=== PATIENT | male | born 1970 | race Caucasian/White ===

== ENCOUNTER 2017-09-20 01:53 | Emergency (ER) | payer OTHER ==
[~2017-09-20] VITALS: Ht 190.5 cm; Wt 150.7 kg
[~2017-09-20 01:53] MED LIST: BACT800T5 PO; PERC5TAB12 PO; TAMS0.4C67 PO; ZOFR4TAB3 SL
[2017-09-20 01:57] VITALS: BP 144/86; PULSE 84; RESP 18; TEMP 98.1; O2SAT 96
[2017-09-20 02:11] VITALS: BP 144/86; PULSE 84; RESP 20; TEMP 98.1; O2SAT 96
--- NOTE | 2017-09-20 02:32 | PD ---
HPI Chief Complaint: Cold / Flu Symptoms Time Seen by Provider: 02:29 Travel History International Travel<30 days: No Contact w/Intl Traveler<30days: No Traveled to known affect area: No History of Present Illness HPI 47-year-old male presents to the emergency department for persistent cough 10 days after course of azithromycin and prednisone. Patient was seen at local urgent care and diagnosed with bronchitis and prescribed azithromycin and prednisone. Patient completed course of medication. Patient is used over-the- counter Flonase with some symptom relief. Patient states that onset of symptoms he was coughing up green phlegm production and now phlegm is a mild zhang color. No fever or chills. Patient denies history of diabetes or hypertension. Son with recent similar symptoms and was diagnosed with pneumonia. Patient is concerned that he may have pneumonia. PFSH Past Medical History Narrative Medical Kidney stone; no tobacco use; nursing notes reviewed Blood Disorders: No Cancer: No Cardiovascular Problems: No Chemotherapy: No Diminished Hearing: No Endocrine: No Genitourinary: No Immune Disorder: No Kidney Stones: Yes Musculoskeletal: No Neurologic: No Psychiatric: No Reproductive: No Respiratory: No Radiation Therapy: No Influenza Vaccination: No Past Surgical History Abdominal Surgery: No AICD: No Arteriovenous Shunt: No Cardiac Surgery: No Ear Surgery: No Endocrine Surgery: No Eye Surgery: No Gynecologic Surgery: No Insulin Pump: No Joint Replacement: No Oral Surgery: No Pacemaker: No Thoracic Surgery: No Other Surgery: Yes Social History Alcohol Use: No Tobacco Use: No Substance Use: No Allergies-Medications (Allergen,Severity, Reaction): Coded Allergies: No Known Allergies (Verified Adverse Reaction, Unknown, 09/20/17) Reported Meds & Prescriptions Reported Meds & Active Scripts Active Review of Systems Except as stated in HPI: all other systems reviewed are Neg General / Constitutional: No: Fever, Chills HENT: Positive: Congestion, No: Sore Throat Cardiovascular: No: Chest Pain or Discomfort Respiratory: Positive: Cough, No: Shortness of Breath, Wheezing Gastrointestinal: No: Vomiting, Abdominal Pain Genitourinary: No: Flank Pain Musculoskeletal: No: Myalgias, Arthralgias Skin: No Rash Neurologic: No: Weakness Psychiatric: No: Anxiety Hematologic/Lymphatic: No: Lymph Node Enlargement Physical Exam Narrative GENERAL: Well-developed well-nourished male no acute distress no respiratory distress; GCS 15 SKIN: Warm and dry. HEAD: Normocephalic. EYES: No scleral icterus. No injection or drainage. ENT: Mucous membranes moist airways patent tympanic membranes no redness dullness or loss of landmarks no perforation. NECK: Supple, trachea midline. No JVD or lymphadenopathy. No meningismus no nuchal rigidity. CARDIOVASCULAR: Regular rate and rhythm without murmurs, gallops, or rubs. RESPIRATORY: Breath sounds equal bilaterally. No accessory muscle use. GASTROINTESTINAL: Abdomen soft, non-tender, nondistended. MUSCULOSKELETAL: No cyanosis, or edema. BACK: Nontender without obvious deformity. No CVA tenderness. Data Data Last Documented VS Vital Signs Date Time Temp Pulse Resp B/P (MAP) Pulse Ox O2 Delivery O2 Flow Rate FiO2 09/20/17 02:16 20 96 Room Air 09/20/17 02:11 98.1 84 144/86 (105) Orders Orders Chest, Pa & Lat (09/20/17 ) [facility] Medical Decision Making Medical Screen Exam Complete: Yes Emergency Medical Condition: Yes Medical Record Reviewed: Yes Interpretation(s) CXR: FINDINGS: Mild left base atelectasis. No pleural effusion. No pneumothorax. Heart size within normal limits. Mediastinal silhouette within normal limits. CONCLUSION: Trace left base atelectasis. Otherwise negative. John Castorena MD on September 20, 2017 at 2:55 Board Certified Radiologist. This report was verified electronically. Vital Signs Date Time Temp Pulse Resp B/P (MAP) Pulse Ox O2 Delivery O2 Flow Rate FiO2 09/20/17 02:16 20 96 Room Air 09/20/17 02:11 98.1 84 20 144/86 (105) 96 09/20/17 01:57 98.1 84 18 144/86 (105) 96 Differential Diagnosis Bronchitis, sinusitis, pneumonia, viral syndrome Narrative Course Chest x-ray ordered Chest x-ray consistent with trace base atelectasis otherwise negative per reading radiologist Dr. Castorena this information is shared with the patient; patient with persistent bronchitic type cough/bronchospastic type cough will provide prescription for albuterol inhaler to use as needed for wheezing/ shortness of breath and will administer a second round of azithromycin. Diagnosis Primary Impression: Bronchitis Referrals: Primary Care Physician call for appointment Patient Instructions: General Instructions Additional Instructions: Increase fluid hydration Follow-up with your primary care provider May continue to use Flonase per package directions May use [id number] Afrin nasal decongestant spray per directions for 2-3 days avoid prolonged use to avoid rebound congestion Monitor temperature for fever take acetaminophen/Tylenol every 4 hours as needed for fever 100.4F or greater Take ibuprofen/Advil/Motrin 800 mg as often as every 8 hours as needed for pain Associates inflammation or for fever 100.4F or greater Return to the emergency department for any concerns or change in condition Med/Other Pt SpecificInfo: Prescription(s) given Scripts Albuterol 18 GM Inh (Ventolin Hfa 18 GM Inh) 90 Mcg/Act Aer 2 PUFF INH Q4-6H Y for SHORTNESS OF BREATH, #1 INHALER 0 Refills Prov: Ludy Escalante MD 09/20/17 Azithromycin (Zithromax Z-Zachery) 250 Mg Dspk 250 MG PO DIRECTED for Infection, #1 DSPK 0 Refills 500 MG (2 tabs) day 1, then 1 tab days 2-5. Prov: Ludy Escalante MD 09/20/17 Disposition: 01 DISCHARGE HOME Condition: Stable Ludy Escalante MD Sep 20, 2017 02:32
--- NOTE | 2017-09-20 02:57 | RADRPT ---
EXAM DATE/TIME: 09/20/2017 02:36 [place] COMPARISON: No previous studies available for comparison. INDICATIONS : Cough. MEDICAL HISTORY : None. SURGICAL HISTORY : None. ENCOUNTER: Initial ACUITY: 1 week PAIN SCORE: 0/10 LOCATION: Bilateral chest FINDINGS: Mild left base atelectasis. No pleural effusion. No pneumothorax. Heart size within normal limits. Me diastinal silhouette within normal limits. CONCLUSION: Trace left base atelectasis. Otherwise negative. John Castorena MD on September 20, 2017 at 2:55 Board Certified Radiologist. This report was verified electronically.
[2017-09-20] MEDS ORDERED: VENTAER INH (03:05)
[2017-09-20] MEDS ORDERED: ZITHTAB PO (03:05)
[2017-09-20 03:09] VITALS: BP 128/93
== END 2017-09-20 03:17 | disposition home or self-care (01) ==
LOC: PHED 01:53
DX: J40 Bronchitis, not specified as acute or chronic (principal)
CPT/HCPCS: 71046; 99283